=== PATIENT | female | born 1965 | race Caucasian/White ===

== ENCOUNTER 2017-09-29 08:11 | Day surgery (SDC) | payer OTHER ==
--- NOTE | 2017-09-28 12:26 | PREOPHP ---
DATE OF ADMISSION: 09/29/2017 HISTORY OF PRESENT ILLNESS: This 51-year-old patient is admitted for elective cataract surgery of t he left eye. The patient has a history of insulin-dependent diabetes mellitus with secondary prolif erative diabetic retinopathy who has previously undergone vitrectomy in both eyes approximately 20 y ears ago, as well as retinal laser therapy in both eyes. This patient currently is being referred b y her retinal surgeon because of the development of macular hole in both eyes and with advanced sai ract the surgery cannot be performed unless the cataract is removed. The patient also has a history of chronic open angle glaucoma being treated with latanoprost. CURRENT MEDICATIONS: Includes: 1. Metformin. 2. Humalog. 3. Levothyroxine. 4. A statin. 5. The patient is also on latanoprost in both eyes. ALLERGIES: THERE ARE NO KNOWN ALLERGIES. PHYSICAL EXAMINATION: The visual acuity best corrected is 20/200 in both eyes. There is an upper e yelid ptosis of both eyes. Examination of the lens reveals advanced nuclear sclerotic cataract pres ent in both eyes. Applanation tonometry is 24 mmHg. Examination of the retina is obscured by the a dvanced cataract formation in both eyes. DIAGNOSIS: Near mature cataract, left eye. PLAN: Cataract extraction with lens implant, left eye. The risks and alternatives to the surgery h ave been discussed with the patient as well as the need to perform the cataract surgery in advance o f performing vitrectomy and treatment for the macular hole. The patient understands this and unders tands the limited visual improvement immediately following the cataract surgery. The patient hereby consents to cataract surgery in the left eye, understanding the risks and the alternatives. Dictated By: JUAN M PEARL/BETSEY Conf#: [id number] DID#: [id number]
[~2017-09-29] VITALS: Ht 167.6 cm; Wt 77.3 kg
[2017-09-29] VITALS (7 sets, daily range): BP systolic 99–164; BP diastolic 50–69; PULSE 73–77; RESP 16–31; Ht 167.6 cm; Wt 77.3 kg
[~2017-09-29 08:11] MED LIST: BROMFENAC SODIUM 1.7 ML OPH DROP OPER SCH; CYCLOPENTOLATE/PHENYLEPH 2 ML OPH OPER SCH; MOXIFLOXACIN 0.5% 3 ML OPH OPER SCH; SOD CHLORIDE 0.9% 1,000 ML IV SCH; TROPICAMIDE 1% 3 ML OPH OPER SCH
[2017-09-29] MEDS ORDERED: INSU100I33 SC (08:39)
[2017-09-29] MEDS ORDERED: LEVO25TA50 PO (08:39)
[2017-09-29] MEDS ORDERED: FER325 PO (08:39)
[2017-09-29] MEDS ORDERED: METF1000 PO (08:41)
[2017-09-29] MEDS ORDERED: PRAV10TA43 PO (08:42)
[2017-09-29] MEDS ORDERED: LATA2.5D2 BOTH EYES (08:43)
[2017-09-29] MEDS ORDERED: BRIM15DR7 BOTH EYES (08:44)
[2017-09-29 09:11] LABS: BASOPHILS % 0.8 % (0.0-2.0); EOSINOPHILS # 0.1 10^3/ul (0.0-0.5); HEMATOCRIT 35.7 % (37.0-47.0); LYMPHOCYTES # 1.9 10^3/ul (0.8-2.9); LYMPHOCYTES % 36.9 % (15.0-51.0); MEAN CORPUSCULAR HEMOGLOBIN 28.7 pg (29.0-33.0); MEAN CORPUSCULAR HGB CONC 33.6 g/dl (32.0-37.0); MEAN CORPUSCULAR VOLUME 85.4 fl (82.0-101.0); MEAN PLATELET VOLUME 11.9 fl (7.4-10.4); MONOCYTE # 0.3 10^3/ul (0.3-0.9); MONOCYTES % 5.3 % (0.0-11.0); NEUTROPHIL # 2.9 10^3/ul (1.6-7.5); NEUTROPHILS % 55.8 % (39.0-77.0); PLATELET COUNT 220 10^3/UL (140-415); RED BLOOD COUNT 4.18 10^6/ul (4.20-5.40); RED CELL DISTRIBUTION WIDTH 13.1 % (11.5-14.5); WHITE BLOOD COUNT 5.1 10^3/ul (4.8-10.8)
[2017-09-29 09:37] LABS: ALBUMIN 4.4 g/dl (3.3-4.9); ALBUMIN/GLOBULIN RATIO 1.07; BILIRUBIN,INDIRECT 0.4 mg/dl (0-1.1); BILIRUBIN,TOTAL 0.4 mg/dl (0.2-1.3); TOTAL PROTEIN 8.5 g/dl (6.1-8.1)
[2017-09-29 09:39] LABS: CALCIUM 9.8 mg/dl (8.4-10.2); CREATININE 0.61 mg/dl (0.44-1.00); INR 0.95; POTASSIUM 4.6 mmol/L (3.5-5.1); PROTIME 12.8 Sec (11.9-14.9)
[2017-09-29 09:40] LABS: PARTIAL THROMBOPLASTIN TIME 31.5 Sec (25.0-35.0)
[2017-09-29] MEDS ORDERED: CEFAZOLIN 1 GM INJ ONE (10:09)
[2017-09-29] MEDS ORDERED: LIDOCAINE 4% (MPF) 5 ML INJ ONE (10:09)
[2017-09-29] MEDS ORDERED: DEXAMETHASONE 4 MG/ML 1 ML INJ ONE (10:09)
[2017-09-29] MEDS ORDERED: CARBACHOL 0.01% 1.5 ML OPH INJ ONE (10:09)
[2017-09-29] MEDS ORDERED: EPINEPHrine 1 MG INJ ONE (10:09)
[2017-09-29] MEDS ORDERED: GENTAMICIN 80 MG INJ ONE (10:09)
[2017-09-29] MEDS ORDERED: CEFAZOLIN 1 GM INJ INJ ONE (10:15)
[2017-09-29] MEDS ORDERED: CARBACHOL 0.01% 1.5 ML OPH INJ IO ONE (10:15)
[2017-09-29] MEDS ORDERED: DEXAMETHASONE 4 MG/ML 1 ML INJ INJ ONE (10:15)
[2017-09-29] MEDS ORDERED: LIDOCAINE 2% (SDV) 5 ML INJ ONE (10:18)
[2017-09-29] MEDS ORDERED: PROPOFOL 20 ML ONE (10:18)
[2017-09-29] MEDS ORDERED: hydrALAzine 20 MG INJ ONE (10:22)
--- NOTE | 2017-09-29 11:08 | SIPON ---
Date/Time of Note Date/Time of Note DATE: 09/29/17 TIME: 11:06 Operative Report Preoperative Diagnosis mature cataract od Postoperative Diagnosis same Operation/Procedure Performed cataract surgery with lens implant od Surgeon see signature line foundation assistant none Anesthesia: MAC Estimated blood loss: none Transfusion Required none Specimen none Grafts/Implants posterior chamber lens implant Complications none JUAN M HYATT MD Sep 29, 2017 11:08
--- NOTE | 2017-09-29 12:34 | OPR ---
DATE OF OPERATION: 09/29/2017 PREOPERATIVE DIAGNOSIS: Mature cataract, left eye. POSTOPERATIVE DIAGNOSIS: Cataract, left eye. PROCEDURE: Cataract extraction with lens implant, left eye. SURGEON: Juan M Solis MD. ANESTHESIOLOGIST: Dr. Allen. INDICATION FOR SURGERY: This patient has previously had proliferative diabetic retinopathy requirin g a pars plana vitrectomy in both eyes. This led to advanced cataract formation and patient is in n eed of additional retinal surgery involving repair of macular hole in both eyes. Because of the den se cataract, the retinal surgeon was unable to feel that he could satisfactorily performed the surge ry and therefore, the patient was required to undergo cataract surgery in both eyes. PROCEDURE: The patient was brought to the operating room and placed on the table with an IV in plac e and the patient attached to an surveillance system monitor. Oxygen was given via face mask. After some intravenous sedation was administered, local anesthesia was given using Xylocaine 2% with epinephrine, mixed with Marcaine 0.5%. This was given in a lid block and retrobulbar injection. The patient was then prepped and draped in the usual sterile manner. A wire lid speculum was inserted between the lids of the left eye. A Superblade was used to enter th e anterior chamber at the corneoscleral limbus at the 10:30 o'clock position. A separate incision wa s made using a 3.0-mm keratome which entered the corneoscleral junction at the 12 o'clock position. Through this 3-mm opening, an irrigating cystotome was introduced into the anterior chamber. The eder mber was filled with Provisc and an anterior capsulotomy was performed. Balanced salt solution was t hen used for hydrodissection of the lens. A phacoemulsification handpiece was then brought into the field and introduced into the anterior chamber. The lens nucleus was emulsified using a deep groove and cracking the nucleus into quadrants. Following this, each quadrant was aspirated and emulsified at the pupillary margin. The total time spent using the ultrasonic portion of the phacoemulsificat ion equipment was 4-1/2 minutes (a relatively long period of time to break up the dense nuclear sai ract). After this was completed, the irrigation/aspiration handpiece was brought to the field, introduced i nto the posterior chamber, and the lens cortical material was removed. When this was completed, chan tional Provisc was injected into the anterior and posterior chambers. The 3-mm opening had its internal lips enlarged, and then the posterior chamber intraocular lens seema suring 20.5 diopters ([employer] model LI61A0) was then injected into the posterior chamber using the lens injector system. After the leading haptic was introduced into the capsular b ag and the lens optic was present in the center of the eye, the injector was removed and the trailin g haptic was grasped with non-toothed forceps and introduced into the capsular fold superiorly. A Si nskey hook was then used to rotate the intraocular lens so that the lips were oriented in the horizo ntal meridian. One 10-0 nylon suture was placed across the wound. Prior to tying, the irrigation/aspiration handpiece was reintroduced into the anterior chamber to re move the Provisc. Miochol was instilled to constrict the pupil, and then the 10-0 nylon suture was t ied. The ends were cut short and then the knot was buried. Then, 0.5 mL of dexamethasone and 0.5 mL of Ancef were injected into the sub-Tenon space in the infe rior fornix. Ciloxan drops were then placed on the surface of the eye. The speculum was removed and a patch was applied. The patient then left the operating room in satisfactory condition. Dictated By: JUAN M PEARL/BETSEY Conf#: [id number] DID#: [id number]
== END 2017-09-29 12:25 | disposition home or self-care (01) ==
LOC: SDS 08:11
PROVIDERS: ATTEND Ophthalmology
DX: H25.12 Age-related nuclear cataract, left eye (principal); E78.5 Hyperlipidemia, unspecified
CPT/HCPCS: 66984; 80053; 82962; 85025; 85610; 85730; J0171; J0360; J0690; J1100; J1580; V2632; Z7512; Z7610

== ENCOUNTER 2019-04-01 05:56 | Day surgery (SDC) | payer OTHER ==
[~2019-04-01] VITALS: Ht 170.2 cm; Wt 78.7 kg
[~2019-04-01 05:56] MED LIST changes: +BRIM15DR7 BOTH EYES; -BROMFENAC SODIUM 1.7 ML OPH DROP OPER SCH; -CYCLOPENTOLATE/PHENYLEPH 2 ML OPH OPER SCH; +FER325 PO; +INSU100I33 SC; +LATA2.5D2 BOTH EYES; +LEVO25TA50 PO; +METF100010 PO; -MOXIFLOXACIN 0.5% 3 ML OPH OPER SCH; +PRAV10TA43 PO; -SOD CHLORIDE 0.9% 1,000 ML IV SCH; -TROPICAMIDE 1% 3 ML OPH OPER SCH
[2019-04-01 07:04] VITALS: Ht 170.2 cm; Wt 78.7 kg
[2019-04-01 07:36] VITALS: BP 203/85; PULSE 68; RESP 18
[2019-04-01] MEDS ORDERED: LIDOCAINE 4% SOLUTION 50 ML BTL ONE (07:39)
[2019-04-01 09:03] VITALS: BP 141/73; PULSE 66; RESP 24
[2019-04-01] MEDS ORDERED: MIDAZOLAM 1 MG/ML 2 ML INJ ONE ×2 (09:12)
[2019-04-01] MEDS ORDERED: FENTAnyl 50 MCG/ML VIAL ONE (09:12)
== END 2019-04-01 12:42 | disposition home or self-care (01) ==
LOC: GIL 05:56
PROVIDERS: ATTEND Internal Medicine Gastroenterology
DX: K64.9 Unspecified hemorrhoids (principal); K31.7 Polyp of stomach and duodenum; E11.9 Type 2 diabetes mellitus without complications; E78.00 Pure hypercholesterolemia, unspecified
CPT/HCPCS: 43239; 45378; 82962; 88305; 88312; J2250; J3010; Z7610